=== PATIENT | male | born 1985 | race Asian ===

== ENCOUNTER 2017-03-26 18:20 | Emergency (ER) | payer OTHER ==
--- NOTE | 2017-03-27 03:51 | ED Physician Chart ---
ED Chief Complaint/HPI - Patient Information Date Seen:: 03/26/17 Time Seen:: 18:20 Chief Complaint:: Right knee pain History of Present Illness:: Patient reports traumatic event today and subsequent knee pain, wants to be checked out. Allergies:: Allergies Allergy/AdvReac Type Severity Reaction Status Date / Time No Known Allergies Allergy Verified 03/26/17 19:16 Historian:: Patient Review:: Nurse's Note Reviewed ED Review of Systems - Review of Systems General/Constitutional: No fever Skin: Bruising (Bruising present but not from today's event, no sign of swelling.) Head: No headache Eyes: No loss of vision ENT: No earache Neck: No neck pain Cardio Vascular: No chest pain Pulmonary: No SOB GI: No nausea, No vomiting G/U: No dysuria Musculoskeletal: Bone or joint pain (Minor pain reaction to range of motion testing in the knee. No pain reaction to rom testing of hip. ) Psychiatric: No prior psych history Hematopoietic: Bruising (Minor bruising on leg, not related to incident.) Neurological: No syncope ED Past Medical History - Past Medical History Past Medical History: No significant medical hx Family History: None Social History: Non Smoker, No Alcohol, No Drug Use Surgical History: None Psychiatricy History: None Medication: None Family Medical History - Family Member Mother History Unknown: Yes ED Physical Exam - Physical Examination Head: Atraumatic Eyes: Lids, conjuctiva normal ENMT: External ears, nose nl Neck: Nontender Respiratory: Nl effort/Exclusion Cardio Vascular: RRR GI: No tenderness/rebounding/guarding Extremities: No edema Neuro/Psych: Alert/oriented Misc: Normal back ED Assessment - Assessment General Assessment: Soft tissue injury, ligamental strain. This condition life threatening/high prob of deterioration: No - Procedures Procedures:: Francisco Javier wrap applied, instructed to take tylenol and aleve. ED Septic Shock - . Is Septic Shock (SBP<90, OR Lactate>4 mmol\L) present?: No ED Reassessment (Disposition) - Reassessment Reassessment Condition:: Improved (Improved with francisco javier wrapping. ) - Diagnosis Diagnosis:: Soft tissue injury, possible ligamental strain - Aftercare/Follow up Instructions Aftercare/Follow-Up Instructions:: Refer to Discharge Instructions - Patient Disposition Discharge/Transfer:: Home Time:: 20:55 Condition at Disposition:: Stable, Improved ED Discharge Plan - Patient Disposition Admit/Discharge/Transfer: PT DISCHARGED HOME Condition at Disposition: Improved Instructions: Contusion, [id number] Additional Instructions: USE OVER THE COUNTER ALEEVE FOR PAIN CONTROL, AND WALK WITH A SUPPORT CRUTCH FOR THE NEXT WEEK OR UNTIL FEELING BETTER. Forms: Work Release Form
== END 2017-03-26 20:55 | disposition home or self-care (01) ==
LOC: ER 18:20
DX: M25.561 Pain in right knee (principal)